=== PATIENT | female | born 1960 | race Caucasian/White ===

== ENCOUNTER 2017-05-13 14:14 | Emergency (ER) | payer MEDICAID ==
[~2017-05-13] VITALS: Ht 162.6 cm; Wt 106.6 kg
[2017-05-13 14:14] VITALS: BP_SYST 132
[2017-05-13] MEDS ORDERED: IBUPROFEN 800 MG TABLET PO ONE (14:45)
== END 2017-05-13 15:00 | disposition home or self-care (01) ==
LOC: SED 14:14
DX: M54.2 Cervicalgia (principal); M54.5 Low back pain; Z88.0 Allergy status to penicillin; V89.2XXA Person injured in unspecified motor-vehicle accident, traffic, initial encounter; Y93.89 Activity, other specified; Y92.488 Other paved roadways as the place of occurrence of the external cause; Y99.8 Other external cause status
CPT/HCPCS: 99283